=== PATIENT | female | born 1975 | race Caucasian/White ===

== ENCOUNTER 2016-08-02 18:08 | Emergency (ER) | payer OTHER ==
[~2016-08-02] VITALS: Ht 185.4 cm; Wt 85.7 kg
[2016-08-02] MEDS ORDERED: ALEV220C2 PO (18:22)
[2016-08-02] MEDS ORDERED: KETOROLAC 30 MG/ML VIAL (J1885) IV ONE (18:45)
[2016-08-02] MEDS ORDERED: diphenhydrAMINE INJ 50MG/ML VIAL (J1200) IV STA (18:45)
[2016-08-02] MEDS ORDERED: METOCLOPRAMIDE INJ 10MG/2ML VIAL (J2765) IV ONE (18:45)
[2016-08-02] MEDS ORDERED: NS 1,000 ML IV ONE (18:45)
[2016-08-02 20:20] VITALS: BP 119/87
== END 2016-08-02 20:27 | disposition home or self-care (01) ==
LOC: M ED 18:58
DX: R51 Headache (principal); Z88.0 Allergy status to penicillin